=== PATIENT | male | born 1965 | race Caucasian/White ===

== ENCOUNTER 2020-12-27 00:30 | Emergency (ER) | payer SELFPAY | END 2020-12-27 03:09 | disposition home or self-care (01) | LOC: ER1 00:30 | DX: S16.1XXA Strain of muscle, fascia and tendon at neck level, initial encounter (principal); S39.012A Strain of muscle, fascia and tendon of lower back, initial encounter; S29.012A Strain of muscle and tendon of back wall of thorax, initial encounter; S90.02XA Contusion of left ankle, initial encounter; S80.01XA Contusion of right knee, initial encounter; V49.40XA Driver injured in collision with unspecified motor vehicles in traffic accident, initial encounter; Y92.410 Unspecified street and highway as the place of occurrence of the external cause; Z88.2 Allergy status to sulfonamides | CPT/HCPCS: 72125; 72128; 72131; 73564; 73610; 99284 ==

== ENCOUNTER 2022-02-21 23:29 | Emergency (ER) | payer OTHER | END 2022-02-21 23:58 | disposition left against medical advice (07) | LOC: ER1 23:29 | DX: Z53.21 Procedure and treatment not carried out due to patient leaving prior to being seen by health care provider (principal) ==